=== PATIENT | male | born 1965 | race Two or more races ===

== ENCOUNTER 2020-10-29 09:38 | Emergency (ER) | payer OTHER ==
[2020-10-29 10:04] VITALS: BP 182/108; PULSE 75; TEMP 97.6; BMI 26.6
[2020-10-29] MEDS ORDERED: KETOROLAC TROMETHAMINE 30 MG/1 ML VIAL IM ONE (10:11)
[2020-10-29] MEDS ORDERED: METHOCARBAMOL 500 MG TABLET PO ONE (10:11)
[2020-10-29] MEDS ORDERED: LIDOCAINE 5% TOPICAL PATCH TP ONE (10:12)
== END 2020-10-29 11:12 | disposition home or self-care (01) ==
LOC: JERFT 09:38
PROC: 3E0233Z Introduction of Anti-inflammatory into Muscle, Percutaneous Approach (ICD-10-PCS; principal; 2020-10-29)
DX: M62.830 Muscle spasm of back (principal)
CPT/HCPCS: 72100-TC-FY; 99284-25